=== PATIENT | female | born 1995 | race Caucasian/White ===

== ENCOUNTER 2016-05-26 01:39 | Emergency (ER) | payer MEDICAID, OTHER ==
[~2016-05-26] VITALS: Ht 162.6 cm; Wt 92.0 kg
[~2016-05-26 01:39] MED LIST: FLON0.053 INH; LISD40 PO; NORE1TAB6 PO; WAL-10TA2 PO; WELL150T PO; Z.0.NO CURRENT MEDS
[2016-05-26 01:40] VITALS: BP 134/80; PULSE 97; RESP 16; TEMP 98; O2SAT 99
[2016-05-26] MEDS ORDERED: SODIUM CHLOR 0.9% 1000 ML INJ 1,000 ML IV ONE (02:01)
[2016-05-26 02:25] LABS: BASOPHIL % 0.4 % (0.0-2.0); EOSINOPHIL # 0.1 TH/MM3 (0-0.4); EOSINOPHIL % 0.8 % (0.0-4.0); HEMATOCRIT 41.7 % (35.0-46.0); HEMO FLAGS DIFF FINAL; LYMPH % 16.1 % (9.0-44.0); LYMPHOCYTE # 1.6 TH/MM3 (1.0-4.8); MEAN CELL VOLUME 83.1 FL (80.0-100.0); MEAN CORPUSCULAR HEMOGLOBIN 27.6 PG (27.0-34.0); MEAN CORPUSCULAR HGB CONC 33.2 % (32.0-36.0); MONO % 3.4 % (0.0-8.0); NEUT % 79.3 % (16.0-70.0); PLATELET COUNT 298 TH/MM3 (150-450); RED BLOOD COUNT 5.02 MIL/MM3 (4.00-5.30); RED CELL DISTRIBUTION WIDTH 14.9 % (11.6-17.2); WHITE BLOOD COUNT 10.1 TH/MM3 (4.0-11.0)
[2016-05-26 02:27] LABS: BACTERIA, URINE OCC /hpf; BLOOD, URINE NEG (NEG); COMMENT (UR) CULT NOT INDICATED; CULTURE IF INDICATED CULT NOT INDICATED; GLUCOSE,URINE NEG (NEG); KETONE, URINE NEG (NEG); MUCUS URINE FEW /lpf (OCC); NITRITE,URINE NEG (NEG); SQUAMOUS EPITHELIAL CELL URINE 2 /hpf (0-5); URINE COLOR YELLOW (YELLW/STRAW)
[2016-05-26 02:52] LABS: ANION GAP 9 MEQ/L (5-15); AST (GOT) 19 U/L (16-38); BICARBONATE 23.5 MEQ/L (21.0-32.0); BLOOD UREA NITROGEN 13 MG/DL (7-18); CHLORIDE 106 MEQ/L (98-107); GLOMERULAR FILTRATION RATE 86 ML/MIN (>89); POTASSIUM 3.7 MEQ/L (3.5-5.1); SODIUM (NA) 138 MEQ/L (136-145)
[2016-05-26 03:10] LABS: ALKALINE PHOSPHATASE 84 U/L (45-117); ALT (GPT) 29 U/L (9-42); BETA HCG QUANT 11376 MIU/ML (0-5); TOTAL BILIRUBIN ADULT 0.3 MG/DL (0.2-1.0)
[2016-05-26] MEDS ORDERED: MACR100C2 PO (04:22)
--- NOTE | 2016-05-26 04:23 | PD ---
HPI Chief Complaint: Related Problem Time Seen by Provider: 02:00 Travel History International Travel<30 days: No Contact w/Intl Traveler<30days: No Traveled to known affect area: No History of Present Illness HPI The patient is a 20 year old female who presents to the [facility] emergency department with a history of beginning to have pelvic pain similar to when she's had ovarian cysts in the past on May 18. She reports that she took a home urine test that was positive. She then went to [facility] and had a test confirmed that she was . She reports that her hormone level was noted to be too low for an ultrasound to be done, therefore she was told to come back in 2 days to have repeat hormone level and possibly an ultrasound. On May 20 she went to [facility] again, however she waited for several hours and never received her results. She ended up leaving AGAINST MEDICAL ADVICE prior to the completion of her workup. The patient reports that she is a . She had a term vaginal delivery in November 2015. She denies breast-feeding currently. She reports that today she began to have intermittent spotting. She reports that the pain is all across her pelvis bilaterally and bilateral flanks. She reports that she last had intercourse today. The patient denies any recent fevers, cough, congestion, neck pain, chest pain, shortness of breath, vomiting , diarrhea, urinary symptoms, or neurologic symptoms. [facility] Past Medical History Narrative Medical The patient's past medical history is significant for ovarian cysts, asthma, depression, history of seizure 1, History of attention deficit hyperactivity disorder, history of chronic neck and back pain. ADHD: Yes (ADHD) Asthma: Yes Autoimmune Disease: No Cancer: No Cardiovascular Problems: No Diabetes: No Gastrointestinal Disorders: Yes Genitourinary: No Musculoskeletal: Yes (back and neck pain) Neurologic: No Psychiatric: Yes (DEFIANT D/O) Respiratory: Yes Migraines: Yes (OTC DRUGS EFFECTIVE) Seizures: Yes (1 SEIZURE OF UNKNOWN ORIGIN 2 MO AGO. ) Thyroid Disease: No Ulcer: No Tetanus Vaccination: < 5 Years Influenza Vaccination: Yes ?: LMP: end of apr : 2 Para: 1 Past Surgical History Narrative Surgical The patient's past surgical history is reportedly none. Surgical History: No Previous Surgery Other Surgery: No Social History Alcohol Use: No Tobacco Use: No Substance Use: No Allergies-Medications (Allergen,Severity, Reaction): Uncoded Allergies: METAL (Allergy, 01/16/13) Reported Meds & Prescriptions Reported Meds & Active Scripts Active Macrobid (Nitrofurantoin Monoh/Nitrofur Macro) 100 Mg Cap 100 Mg PO BID 7 Days Review of Systems Except as stated in HPI: all other systems reviewed are Neg General / Constitutional: No: Fever Eyes: No: Visual changes HENT: No: Headaches Cardiovascular: No: Chest Pain or Discomfort Respiratory: No: Shortness of Breath Gastrointestinal: Positive: Abdominal Pain, No: Nausea, Vomiting, Diarrhea, Changes in Bowel Habits, Indigestion, Loss of Appetite Genitourinary: Positive: Frequency, Pelvic Pain, Vaginal Bleeding, No: Urgency , Dysuria, Flank Pain Musculoskeletal: No: Pain Skin: No Rash Neurologic: No: Weakness Psychiatric: No: Depression Endocrine: No: Polydipsia Hematologic/Lymphatic: No: Easy Bruising Physical Exam Narrative General: The patient is a well-developed well-nourished female in no acute distress. Head and Neck exam: Head is normocephalic atraumatic. Eyes: Pupils are equal round and reactive to light. Nose: Midline septum with pink mucous membranes Mouth: Dentition unremarkable. Moist mucus membranes. Posterior oropharynx is not erythematous. No tonsillar hypertrophy. Uvula midline. Airway patent. Neck: No palpable lymphadenopathy. No nuchal rigidity. No thyromegaly. Cardiovascular: Regular rate and rhythm without murmurs, gallops, or rubs. Lungs: Clear to auscultation bilaterally. No wheezes, rhonchi, or rales. Abdomen: Soft, with reported suprapubic abdominal discomfort on palpation. No other tenderness on palpation of the other quadrants of the abdomen. No guarding, rebound, or rigidity. Normal bowel sounds are audible. No tenderness on palpation of McBurney's point. Negative Richards's sign. Extremities: No clubbing, cyanosis, or edema. No calf tenderness on palpation. Back: No spinous process tenderness to palpation. No costovertebral angle tenderness to palpation. Neurologic Exam: Grossly nonfocal. Skin Exam: No rash noted. Intact skin that is warm and dry. Gynecologic exam: The patient was placed in the dorsal lithotomy position. Her external genitalia were examined. She had no evidence of rash or lesions. The speculum was placed into her vagina and the cervix was identified. She had a physiologic appearing clear white discharge. No cervical friability. On Bimanual exam: she has no cervical motion tenderness. No adnexal tenderness or prominence noted on palpation. No uterine tenderness or enlargement noted on palpation. Data Data Last Documented VS Vital Signs Date Time Temp Pulse Resp B/P Pulse Ox O2 Delivery O2 Flow Rate FiO2 05/26/16 01:53 18 05/26/16 01:40 98.0 97 134/80 99 Room Air Orders Beta Hcg (Quant/Titer) (05/26/16 02:01) Complete Blood Count With Diff (05/26/16 02:01) Comprehensive Metabolic Panel (05/26/16 02:01) Gc And Chlamydia Pcr (05/26/16 02:01) Complete Rh (05/26/16 02:01) Wet Prep Profile (05/26/16 02:01) Urinalysis - C+S If Indicated (05/26/16 02:01) Iv Access Insert/Monitor (05/26/16 02:01) Ecg Monitoring (05/26/16 02:01) Sodium Chlor 0.9% 1000 Ml Inj (Ns 1000 M (05/26/16 02:01) Us Pelvis (Ques Pr/Ect)W Trans (05/26/16 ) Rhogam Only (05/26/16 02:39) Labs Laboratory Tests Test 05/26/16 05/26/16 05/26/16: 02:30 02:39 White Blood Count 10.1 TH/MM3 Red Blood Count 5.02 MIL/MM3 Hemoglobin 13.8 GM/DL Hematocrit 41.7 % Mean Corpuscular Volume 83.1 FL Mean Corpuscular Hemoglobin 27.6 PG Mean Corpuscular Hemoglobin 33.2 % Concent Red Cell Distribution Width 14.9 % Platelet Count 298 TH/MM3 Mean Platelet Volume 8.2 FL Neutrophils (%) (Auto) 79.3 % Lymphocytes (%) (Auto) 16.1 % Monocytes (%) (Auto) 3.4 % Eosinophils (%) (Auto) 0.8 % Basophils (%) (Auto) 0.4 % Neutrophils # (Auto) 8.0 TH/MM3 Lymphocytes # (Auto) 1.6 TH/MM3 Monocytes # (Auto) 0.3 TH/MM3 Eosinophils # (Auto) 0.1 TH/MM3 Basophils # (Auto) 0.0 TH/MM3 CBC Comment DIFF FINAL Differential Comment Urine Color YELLOW Urine Turbidity CLEAR Urine pH 6.0 Urine Specific [place] 1.027 Urine Protein TRACE mg/dL Urine Glucose (UA) NEG mg/dL Urine Ketones NEG mg/dL Urine Occult Blood NEG Urine Nitrite NEG Urine Bilirubin NEG Urine Urobilinogen LESS THAN 2.0 MG/DL Urine Leukocyte Esterase TRACE Urine RBC 1 /hpf Urine WBC 5 /hpf Urine Squamous Epithelial 2 /hpf Cells Urine Bacteria OCC /hpf Urine Mucus FEW /lpf Microscopic Urinalysis Comment CULT NOT INDICATED Sodium Level 138 MEQ/L Potassium Level 3.7 MEQ/L Chloride Level 106 MEQ/L Carbon Dioxide Level 23.5 MEQ/L Anion Gap 9 MEQ/L Blood Urea Nitrogen 13 MG/DL Creatinine 0.85 MG/DL Estimat Glomerular Filtration 86 ML/MIN Rate Random Glucose 128 MG/DL Calcium Level 8.4 MG/DL Total Bilirubin 0.3 MG/DL Aspartate Amino Transf 19 U/L (AST/SGOT) Alanine Aminotransferase 29 U/L (ALT/SGPT) Alkaline Phosphatase 84 U/L Total Protein 7.5 GM/DL Albumin 3.6 GM/DL Human Chorionic Gonadotropin, 36594 MIU/ML Quant Blood Type A NEGATIVE Rho(D) Type NEGATIVE Clue Cells (Wet Prep) NONE SEEN Vaginal Trichomonas (Wet Prep) NONE SEEN Vaginal Yeast (Wet Prep) NONE SEEN Chlamydia trachomatis DNA NOT DETECTED (PCR) Neisseria gonorrhoeae DNA NOT DETECTED (PCR) Blood Bank Comment MDM Medical Decision Making Medical Screen Exam Complete: Yes Emergency Medical Condition: Yes Medical Record Reviewed: Yes Interpretation(s) Last Impressions Pelvis Ultrasound 05/26/16 0000 Signed Impressions: Service Date/Time: Thursday, May 26, 2016 03:51 - CONCLUSION: 1. Gestational sac in the endometrial cavity at 5 weeks 2 days. 2. 2.9 cm simple cyst of left ovary which may be related to corpus luteal cyst. Uday Gamboa MD Laboratory Tests Test 05/26/16 05/26/16 05/26/16 02:17 02:30 02:39 White Blood Count 10.1 TH/MM3 Red Blood Count 5.02 MIL/MM3 Hemoglobin 13.8 GM/DL Hematocrit 41.7 % Mean Corpuscular Volume 83.1 FL Mean Corpuscular Hemoglobin 27.6 PG Mean Corpuscular Hemoglobin 33.2 % Concent Red Cell Distribution Width 14.9 % Platelet Count 298 TH/MM3 Mean Platelet Volume 8.2 FL Neutrophils (%) (Auto) 79.3 % Lymphocytes (%) (Auto) 16.1 % Monocytes (%) (Auto) 3.4 % Eosinophils (%) (Auto) 0.8 % Basophils (%) (Auto) 0.4 % Neutrophils # (Auto) 8.0 TH/MM3 Lymphocytes # (Auto) 1.6 TH/MM3 Monocytes # (Auto) 0.3 TH/MM3 Eosinophils # (Auto) 0.1 TH/MM3 Basophils # (Auto) 0.0 TH/MM3 CBC Comment DIFF FINAL Differential Comment Urine Color YELLOW Urine Turbidity CLEAR Urine pH 6.0 Urine Specific [place] 1.027 Urine Protein TRACE mg/dL Urine Glucose (UA) NEG mg/dL Urine Ketones NEG mg/dL Urine Occult Blood NEG Urine Nitrite NEG Urine Bilirubin NEG Urine Urobilinogen LESS THAN 2.0 MG/DL Urine Leukocyte Esterase TRACE Urine RBC 1 /hpf Urine WBC 5 /hpf Urine Squamous Epithelial 2 /hpf Cells Urine Bacteria OCC /hpf Urine Mucus FEW /lpf Microscopic Urinalysis Comment CULT NOT INDICATED Sodium Level 138 MEQ/L Potassium Level 3.7 MEQ/L Chloride Level 106 MEQ/L Carbon Dioxide Level 23.5 MEQ/L Anion Gap 9 MEQ/L Blood Urea Nitrogen 13 MG/DL Creatinine 0.85 MG/DL Estimat Glomerular Filtration 86 ML/MIN Rate Random Glucose 128 MG/DL Calcium Level 8.4 MG/DL Total Bilirubin 0.3 MG/DL Aspartate Amino Transf 19 U/L (AST/SGOT) Alanine Aminotransferase 29 U/L (ALT/SGPT) Alkaline Phosphatase 84 U/L Total Protein 7.5 GM/DL Albumin 3.6 GM/DL Human Chorionic Gonadotropin, 09231 MIU/ML Quant Blood Type A NEGATIVE Rho(D) Type NEGATIVE Clue Cells (Wet Prep) NONE SEEN Vaginal Trichomonas (Wet Prep) NONE SEEN Vaginal Yeast (Wet Prep) NONE SEEN Blood Bank Comment Differential Diagnosis Threatened miscarriage, versus subchorionic hemorrhage, versus ectopic , versus cystitis, versus postcoital bleeding Narrative Course During the course of the patients emergency department visit, the patients history, examination, and differential diagnosis were reviewed with the patient. The patient had IV access obtained and blood work sent for analysis. The patient was placed on a professor of religion with oximetry and blood pressure monitoring. The patient was provided normal saline 1 L IV fluid bolus. The patient reports that she is Rh-. RhoGAM has been ordered. An ultrasound has been ordered. The patients laboratory studies were reviewed and remarkable for CBC that shows a white count of 10.1, hemoglobin 13.8, platelets 298 with 79.3 neutrophils, CMP is remarkable for a glucose of 128, calcium 8.4, quantitative beta hCG 11,376, urinalysis shows trace leukocyte esterase occasional bacteria, 2 squamous epithelial cells. Wet prep is negative. Radiology studies were reviewed and remarkable for an ultrasound revealed a 5 week 2 day . No evidence of ectopic . The patient was instructed to follow-up with an CLINICAL INFORMATION SYSTEMS DIRECTOR as previously scheduled. The patient was instructed on bed rest and pelvic rest. The patient is resting comfortably and feels better, is alert and in no distress. The patients results and examination findings were discussed with the patient. The repeat examination is unremarkable and benign. The history, exam, diagnostic testing, and current condition do not suggest any significant pathology to warrant further testing, continued ED treatment, admission, or surgical evaluation at this point. The vital signs have been stable. The patient does not have uncontrollable pain, intractable vomiting, or other significant symptoms. The patient's condition is stable and appropriate for discharge. The patient will pursue further outpatient evaluation with a primary care physician or other designated or consulting physician as indicated in the discharge instructions. The patient expressed understanding and was agreeable with this plan. Diagnosis Primary Impression: Threatened miscarriage Referrals: Program Research Specialist 1 week Patient Instructions: General Instructions, Threatened Miscarriage (ED) Med/Other Pt SpecificInfo: Prescription(s) given Scripts Nitrofurantoin Monohydrate Macrocrystals (Macrobid)100 Mg [id number] Mg PO BID 7 Days Ref 0 Prov:Delia Meza MD 05/26/16 Disposition: 01 DISCHARGE HOME Condition: Stable Delia Meza MD May 26, 2016 04:23
[2016-05-26 04:40] LABS: CHLAMYDIA PCR NOT DETECTED (NOT DETECT); NEISSERIA PCR NOT DETECTED (NOT DETECT)
--- NOTE | 2016-05-26 05:07 | RADRPT ---
EXAM DATE/TIME: 05/26/2016 03:51 [facility] COMPARISON: No previous studies available for comparison. INDICATIONS : Pelvic pain and vaginal bleeding. LAB(S): Beta-hC MEDICAL HISTORY : . Seizures. Asthma. Migraines. ADHD. Back and neck pain. SURGICAL HISTORY : None. ENCOUNTER: Initial ACUITY: > 1 year PAIN SCORE: 7/10 LOCATION: Bilateral pelvis MEASUREMENTS: UTERUS: 8.9 x 4.7 x 6.0 cm ENDOMETRIAL STRIPE: 17 mm RIGHT OVARY: 2.2 x 2.2 x 2.0 cm LEFT OVARY: 3.7 x 2.4 x 2.6 cm FINDINGS: UTERUS: There is a gestational sac seen within the endometrial cavity with a yolk sac. An embryonic pole is n ot seen. The gestational sac measures 1.5 x 1.3 x 0.8 cm corresponding to gestational age of 5 weeks 2 days. RIGHT OVARY: Small cysts/follicles are seen. LEFT OVARY: There is a 2.9 cm simple cyst the left ovary. MISCELLANEOUS: No free fluid. CONCLUSION: 1. Gestational sac in the endometrial cavity at 5 weeks 2 days. 2. 2.9 cm simple cyst of left ovary which may be related to corpus luteal cyst. Uday Gamboa MD on May 26, 2016 at 5:03 Board Certified Radiologist. This report was verified electronically.
== END 2016-05-26 06:13 | disposition home or self-care (01) ==
LOC: NEPE 01:39
DX: O20.0 Threatened abortion (principal); Z3A.01 Less than 8 weeks gestation of pregnancy
CPT/HCPCS: 76700; 76817; 80053; 81001; 84702; 85025; 86901; 87210; 87491; 87591; 90384; 99284; J7030; J2790